=== PATIENT | female | born 1985 | race Caucasian/White ===

== ENCOUNTER 2018-01-03 08:20 | Emergency (ER) | payer OTHER ==
--- NOTE | 2018-01-03 08:38 | EDM.PDOC ---
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 Patient denies any UTI symptoms. No diarrhea. Patient feels very nauseated and has vomiting once. No previous abdominal surgeries. No fevers or chills. Patient states she usually has normal BM's. No blood or mucous in stool. No issues with constipation in the past. Onset: Today, Sudden Onset Date: 01/03/18 Onset Time: 07:45 Duration: Constant Location: Reports: Abdomen (RLQ) Quality: Reports: Sharp, Stabbing, Throbbing Severity: Severe Improves with: Reports: Rest Worsens with: Reports: Eating, Movement Context: Denies: Activity, Sick Contact, Trauma Associated Symptoms: Reports: Nausea/Vomiting Treatments OIL DISPENSER: Reports: Other (see below) (None) Right Lower Abdominal Pain Score (Numeric/FACES): 10 - Related Data Allergies Allergy/AdvReac Type Severity Reaction Status Date / Time silicone Allergy Rash Verified 01/03/18 08:36 Home Meds: Home Meds Tamsulosin HCl [Flomax] 1 cap PO DAILY 6 Days #6 cap.er.24h 01/03/18 [Rx] Tamsulosin HCl [Flomax] 1 cap PO ONETIME 1 Days #1 cap.er.24h 01/03/18 [Rx] Past Medical History Psychiatric History: Reports: Anxiety - Past Surgical History HEENT Surgical History: Reports: Tonsillectomy ED ROS GENERAL - Review of Systems Review Of Systems: See Below Constitutional: Denies: Fever, Chills, Weakness Respiratory: Denies: Shortness of Breath, Cough Cardiovascular: Denies: Chest Pain, Palpitations GI/Abdominal: Reports: Abdominal Pain, Nausea, Vomiting. Denies: Bloody Stool, Constipation, Diarrhea Skin: Reports: No Symptoms Neurological: Reports: No Symptoms. Denies: Dizziness, Headache ED EXAM, GI/ABD - Physical Exam Exam: See Below Exam Limited By: No Limitations General Appearance: Alert, No Apparent Distress Respiratory/Chest: No Respiratory Distress, Lungs Clear, Normal Breath Sounds Cardiovascular: Normal Peripheral Pulses, Regular Rate, Rhythm GI/Abdominal Exam: Soft, Guarding, Rebound, Tender, Abnormal Bowel Sounds ( Hypoactive). No: Distended Neurological: Alert, Oriented Skin Exam: Warm, Dry, Intact, Normal Color Course - Vital Signs Last Recorded V/S: Last Vital Signs Temp 36.8 C 01/03/18 08:25 Pulse 78 01/03/18 08:25 Resp 18 01/03/18 08:25 BP 123/77 01/03/18 08:25 Pulse Ox 97 01/03/18 08:25 - Orders/Labs/Meds Orders: Active Orders 24 hr Category Date Time Status Abdomen Pelvis w wo Cont [CT] Stat Exams 01/03/18 09:36 Taken HCG QUALITATIVE,URINE [URCHEM] Stat Lab 01/03/18 09:38 Ordered Sodium Chloride 0.9% [Saline Flush] Med 01/03/18 08:40 Active 10 ml FLUSH ASDIRECTED PRN Peripheral IV Insertion Adult [OM.PC] Routine Oth 01/03/18 08:40 Ordered Medication Orders Sodium Chloride (Saline Flush) 10 ml FLUSH ASDIRECTED PRN PRN Reason: Keep Vein Open Labs: Laboratory Tests 01/03/18 01/03/18 01/03/18 Range/Units 08:53 08:53 09:13 WBC 12.6 H (4.0-10.0) x10^3/uL RBC 4.55 (4.00-5.50) x10^6/uL Hgb 13.6 D (12.0-16.0) g/dL Hct 40.8 (33.0-47.0) % MCV 89.7 (78.0-93.0) fL MCH 29.9 (26.0-32.0) pg MCHC 33.3 (32.0-36.0) g/dL RDW Coeff of [place] 13.6 (10.0-15.0) % Plt Count 366 D (130-400) x10^3/uL Neut % (Auto) 65.1 (50.0-80.0) % Lymph % (Auto) 26.2 (25.0-50.0) % [place] % (Auto) 7.4 (2.0-11.0) % Eos % (Auto) 1.1 (0.0-4.0) % Baso % (Auto) 0.2 (0.2-1.2) % Sodium 139 (136-145) mmol/L Potassium 4.2 (3.5-5.1) mmol/L Chloride 103 (98-107) mmol/L Carbon Dioxide 25 (21-32) mmol/L Anion Gap 15.2 (10-20) mmol/L BUN 13 (7-18) mg/dL Creatinine 0.8 (0.55-1.02) mg/dL Est Cr Clr Drug Dosing 92.53 mL/min Estimated GFR (MDRD) > 60 Glucose 115 H (74-106) mg/dL Calcium 8.7 (8.5-10.1) mg/dL Corrected Calcium 8.78 (8.5-10.1) mg/dL Total Bilirubin 0.4 (0.2-1.0) mg/dL AST 21 (15-37) U/L ALT 33 (14-59) U/L Alkaline Phosphatase 101 (46-116) U/L Total Protein 7.4 (6.4-8.2) g/dL Albumin 3.9 (3.4-5.0) g/dL Globulin 3.5 Albumin/Globulin Ratio 1.11 Amylase 32 (25-115) U/L Lipase 132 (73-393) U/L Urine Color Yellow (YELLOW) Urine Appearance Slightly cloudy H (CLEAR) Urine pH 5.5 (5.0-8.0) Ur Specific [place] >=1.030 Urine Protein 30 H (NEGATIVE) mg/dL Urine Glucose (UA) Negative (NEGATIVE) mg/dL Urine Ketones Negative (NEGATIVE) mg/dL Urine Occult Blood Moderate H (NEGATIVE) Urine Nitrite Negative (NEGATIVE) Urine Bilirubin Small H (NEGATIVE) Urine Urobilinogen 0.2 (0.2) EU/dL Ur Leukocyte Esterase Trace H (NEGATIVE) Urine RBC 10-20 H (NOT SEEN) /HPF Urine WBC 5-10 H (NOT SEEN) /HPF Ur Squamous Epith Cells Moderate H (NEGATIVE) /HPF Amorphous Sediment Few Urine Bacteria Few H (NEGATIVE) /HPF Urine Mucus Few H (NEGATIVE) /LPF Urine HCG, Qual (NEGATIVE) 18 Range/Units 09:38 WBC (4.0-10.0) x10^3/uL RBC (4.00-5.50) x10^6/uL Hgb (12.0-16.0) g/dL Hct (33.0-47.0) % MCV (78.0-93.0) fL MCH (26.0-32.0) pg MCHC (32.0-36.0) g/dL RDW Coeff of [place] (10.0-15.0) % Plt Count (130-400) x10^3/uL Neut % (Auto) (50.0-80.0) % Lymph % (Auto) (25.0-50.0) % [place] % (Auto) (2.0-11.0) % Eos % (Auto) (0.0-4.0) % Baso % (Auto) (0.2-1.2) % Sodium (136-145) mmol/L Potassium (3.5-5.1) mmol/L Chloride (98-107) mmol/L Carbon Dioxide (21-32) mmol/L Anion Gap (10-20) mmol/L BUN (7-18) mg/dL Creatinine (0.55-1.02) mg/dL Est Cr Clr Drug Dosing mL/min Estimated GFR (MDRD) Glucose (74-106) mg/dL Calcium (8.5-10.1) mg/dL Corrected Calcium (8.5-10.1) mg/dL Total Bilirubin (0.2-1.0) mg/dL AST (15-37) U/L ALT (14-59) U/L Alkaline Phosphatase (46-116) U/L Total Protein (6.4-8.2) g/dL Albumin (3.4-5.0) g/dL Globulin Albumin/Globulin Ratio Amylase (25-115) U/L Lipase (73-393) U/L Urine Color (YELLOW) Urine Appearance (CLEAR) Urine pH (5.0-8.0) Ur Specific [place] Urine Protein (NEGATIVE) mg/dL Urine Glucose (UA) (NEGATIVE) mg/dL Urine Ketones (NEGATIVE) mg/dL Urine Occult Blood (NEGATIVE) Urine Nitrite (NEGATIVE) Urine Bilirubin (NEGATIVE) Urine Urobilinogen (0.2) EU/dL Ur Leukocyte Esterase (NEGATIVE) Urine RBC (NOT SEEN) /HPF Urine WBC (NOT SEEN) /HPF Ur Squamous Epith Cells (NEGATIVE) /HPF Amorphous Sediment Urine Bacteria (NEGATIVE) /HPF Urine Mucus (NEGATIVE) /LPF Urine HCG, Qual Negative (NEGATIVE) Meds: Medications Generic Name Dose Route Start Last Admin Trade Name Freq PRN Reason Stop Dose Admin Sodium Chloride 10 ml 01/03/18 08:40 Saline Flush FLUSH ASDIRECTED PRN Keep Vein Open Discontinued Medications Generic Name Dose Route Start Last Admin Trade Name Freq PRN Reason Stop Dose Admin Hydromorphone HCl 1 mg 01/03/18 10:34 01/03/18 10:39 Dilaudid IVPUSH 01/03/18 10:35 1 mg ONETIME ONE Administration Sodium Chloride 1,000 mls @ 999 mls/hr 01/03/18 08:40 01/03/18 08:54 Normal Saline IV 01/03/18 09:40 999 mls/hr ONETIME ONE Administration Iopamidol 100 ml 01/03/18 09:37 01/03/18 10:08 Isovue-300 (61%) IVPUSH 01/03/18 09:38 100 ml ONETIME ONE Administration Ketorolac Tromethamine 30 mg 01/03/18 08:41 01/03/18 09:00 Toradol IVPUSH 01/03/18 08:42 30 mg ONETIME ONE Administration Ondansetron HCl 4 mg 01/03/18 08:41 01/03/18 08:57 Zofran IVPUSH 01/03/18 08:42 4 mg ONETIME ONE Administration Ondansetron HCl 4 mg 01/03/18 10:05 01/03/18 10:14 Zofran IVPUSH 01/03/18 10:06 4 mg ONETIME ONE Administration - Radiology Interpretation Free Text/Narrative:: CT Abd/Pelvis: 4-5mm distal right ureteral calculus resulting in right sided urinary tract obstruction with hydronephrosis and delayed nephrogram. CT Results Date: 01/03/18 CT Results Time: 11:37 Departure - Departure Time of Disposition: 12:00 Disposition: Home, Self-Care 01 Condition: Good Clinical Impression: Kidney stone Hydronephrosis Qualifiers: Hydronephrosis type: with renal calculous obstruction Qualified Code(s): N13.2 - Hydronephrosis with renal and ureteral calculous obstruction Hematuria Qualifiers: Hematuria type: unspecified type Qualified Code(s): R31.9 - Hematuria, unspecified - Discharge Information Instructions: Hydronephrosis, Kidney Stones, Tamsulosin capsules Referrals: Nida Novoa DO [Physician] - Forms: ED Department Discharge Additional Instructions: 1. Stay well hydrated and rest 2. Take pain medication sparingly, as it will make you drowsy, so be careful 3. If pain gets worse, please go to the ER at [facility] and see the Urologist per his recommendation 4. May use Tylenol/Advil as well 5. Drink LOTS of water to flush stone out 6. Call us with any questions/concerns ED Communication - ED Communication Date/Time Date: 01/03/18 Time Called: 11:52 - Discussed Case With (1) Discussed Case With (1): Outpatient Provider (Dr. Weber, Urology [facility]) - Problem List Review Problem List Initiated/Reviewed/Updated: Yes - My Orders Last 24 Hours: My Active Orders 01/03/18 08:40 Sodium Chloride 0.9% [Saline Flush] 10 ml FLUSH ASDIRECTED PRN Peripheral IV Insertion Adult [OM.PC] Routine 01/03/18 09:36 Abdomen Pelvis w wo Cont [CT] Stat 01/03/18 09:38 HCG QUALITATIVE,URINE [URCHEM] Stat - Assessment/Plan Last 24 Hours: My Active Orders 01/03/18 08:40 Sodium Chloride 0.9% [Saline Flush] 10 ml FLUSH ASDIRECTED PRN Peripheral IV Insertion Adult [OM.PC] Routine 01/03/18 09:36 Abdomen Pelvis w wo Cont [CT] Stat 01/03/18 09:38 HCG QUALITATIVE,URINE [URCHEM] Stat Assessment:: Right ureteral kidney stone with obstruction Mild Hydronephrosis Hematuria Plan: Case discussed with Dr. Weber, urology [facility]. [place]. Will start Flomax and pain medication. If symptoms get worse, patient is to go to the ER in [facility]. Patient verbalized understanding of POC.
[2018-01-03] MEDS ORDERED: Sodium Chloride 0.9% 10 ML Syringe FLUSH PRN (08:40)
[2018-01-03] MEDS ORDERED: Sodium Chloride 0.9% 1,000 ML IV ONE (08:40)
[2018-01-03] MEDS ORDERED: Ondansetron 4 MG/2 ML SDV IVPUSH ONE ×2 (08:41→10:05)
[2018-01-03] MEDS ORDERED: Ketorolac 30 MG/ML SDV IVPUSH ONE (08:41)
[2018-01-03 08:45] VITALS: BP 123/77
[2018-01-03 09:16] LABS: CHLORIDE,CL 103 mmol/L (98-107); SODIUM,NA 139 mmol/L (136-145)
[2018-01-03] MEDS ORDERED: Iopamidol 612 MG/ML 100 ML Bottle IVPUSH ONE (09:37)
[2018-01-03] MEDS ORDERED: HYDROmorphone 1 MG/ML Syringe IVPUSH ONE (10:34)
[2018-01-03] MEDS ORDERED: Take Home: Acetaminophen/HYDROcodone 325-5 MG, 5 Tab Pack PO ONE (12:03)
[2018-01-03] MEDS ORDERED: Tamsulosin 0.4 MG Cap.ER PO ONE (12:10)
== END 2018-01-03 12:25 | disposition home or self-care (01) ==
LOC: VM.ED 08:20 → MERGE 08:20 → VM.ED 12:25
DX: N13.2 Hydronephrosis with renal and ureteral calculous obstruction (principal); Z88.8 Allergy status to other drugs, medicaments and biological substances
CPT/HCPCS: 36415; 74178; 80053; 81001; 81025; 82150; 83690; 85025; 96361; 96374; 96375; 96376; 99284; A9270; J1170; J1885; J2405; J7030; Q9967

== ENCOUNTER 2020-04-06 07:01 | Emergency (ER) | payer MEDICAID ==
[2020-04-06 07:14] VITALS: BP 123/72; PULSE 84
[2020-04-06] MEDS ORDERED: cefTRIAXone 1 GM, Lidocaine 1% 2.1 ML IM ONE ×2 (07:16)
--- NOTE | 2020-04-06 07:18 | EDM.PDOC ---
ED HPI GENERAL MEDICAL PROBLEM - General Chief Complaint: Skin Complaint Stated Complaint: INFECTION IN R MIDDLE FINGER Time Seen by Provider: 04/06/20 07:10 Source of Information: Reports: Patient History Limitations: Reports: No Limitations - History of Present Illness INITIAL COMMENTS - FREE TEXT/NARRATIVE: Patient comes into the emergency department with complaints of infected finger on the right hand. Patient states that she noticed earlier in the week after she peeled a hangnail off her second finger that it started swelling and began to become red. When she woke up this morning she noticed that the swelling was down to the first joint as well as a red line going down the posterior aspect of her hand to her wrist. Patient states that she did become concerned and wanted it evaluated and started on medication right away. Patient states that the swelling has increased in the last 24 hours in the finger as well as the warmth and the pressure of the hand. Patient states she does believe that it did start from after pulling the hangnail. She denies any other injury or concern with the finger. Patient states that she has intact CMS and range of motion.Patient denies any nausea, vomiting, fever, body aches, chills, chest pain, short notice of breath, GI upset, or peripheral edema. Patient states that it does feel better when she is resting her hand or elevating it. She states the discomfort is noticed more when she is trying to move it or complete any activities. 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 Onset: Gradual Duration: Getting Worse Location: Reports: Upper Extremity, Right Quality: Reports: Throbbing Severity: Moderate Improves with: Reports: Immobilization Worsens with: Reports: Movement Associated Symptoms: Reports: No Other Symptoms Right Finger-Middle Pain Score (Numeric/FACES): 7 - Related Data Allergies Allergy/AdvReac Type Severity Reaction Status Date / Time silicone Allergy Rash Verified 04/06/20 07:17 Home Meds: Home Meds Tamsulosin HCl [Flomax] 1 cap PO DAILY 6 Days #6 cap.er.24h 01/03/18 [Rx] Tamsulosin HCl [Flomax] 1 cap PO ONETIME 1 Days #1 cap.er.24h 01/03/18 [Rx] Nitrofurantoin Monohyd/M-Cryst [Macrobid 100 mg Capsule] 100 mg PO BID 5 Days #10 capsule 01/08/18 [Rx] Sulfamethoxazole/Trimethoprim [Bactrim Ds Tablet] 1 each PO BID 10 Days #20 tablet 04/06/20 [Rx] Past Medical History - Past Health History Medical/Surgical History: Denies Medical/Surgical History Genitourinary History: Reports: Renal Calculus Psychiatric History: Reports: Anxiety - Past Surgical History HEENT Surgical History: Reports: Tonsillectomy ED ROS GENERAL - Review of Systems Review Of Systems: Comprehensive ROS is negative, except as noted in HPI. Constitutional: Denies: Fever, Chills, Malaise, Weakness, Fatigue, Night Sweats, Diaphoresis, Decreased Appetite HEENT: Reports: No Symptoms Respiratory: Reports: No Symptoms Cardiovascular: Reports: No Symptoms Endocrine: Reports: No Symptoms GI/Abdominal: Reports: No Symptoms : Reports: No Symptoms Musculoskeletal: Reports: No Symptoms Neurological: Reports: No Symptoms Psychiatric: Reports: No Symptoms Hematologic/Lymphatic: Reports: No Symptoms Immunologic: Reports: No Symptoms ED EXAM, SKIN/RASH Exam: See Below Exam Limited By: No Limitations General Appearance: Alert, WD/WN, No Apparent Distress Throat/Mouth: Normal Inspection, Normal Lips, Normal Teeth, Normal Gums, Normal Oropharynx, Normal Voice, No Airway Compromise Head: Atraumatic, Normocephalic Neck: Normal Inspection, Supple, Non-Tender, Full Range of Motion Respiratory/Chest: No Respiratory Distress, Lungs Clear, Normal Breath Sounds, No Accessory Muscle Use, Chest Non-Tender Cardiovascular: Normal Peripheral Pulses, Regular Rate, Rhythm, No Edema, No Gallop, No JVD, No Murmur, No Rub GI/Abdominal: Normal Bowel Sounds, Soft, Non-Tender, No Organomegaly, No Distention, No Abnormal Bruit, No Mass Extremities: Normal Inspection, Normal Range of Motion, Non-Tender, No Pedal Edema, Normal Capillary Refill Neurological: Alert, Oriented, CN II-XII Intact, Normal Cognition, Normal Gait, Normal Reflexes, No Motor/Sensory Deficits Psychiatric: Normal Affect, Normal Mood Location, Skin: Upper Extremity, Right (2nd digit- distal phalange around nail bed. CMS and ROM intact. red streak down second digit to start of wrist ) Characteristics: Erythematous Associated features: Warmth, Tenderness, Inflammation Lymphatic: No Adenopathy Course - Vital Signs Last Recorded V/S: Last Vital Signs Temp 36.9 C 04/06/20 07:05 Pulse 84 04/06/20 07:05 Resp 16 04/06/20 07:05 BP 123/72 04/06/20 07:05 Pulse Ox 97 04/06/20 07:05 - Orders/Labs/Meds Meds: Medications Discontinued Medications Generic Name Dose Route Start Last Admin Trade Name Stanislaw PRN Reason Stop Dose Admin Ceftriaxone Sodium 1 gm/ 0 gm 04/06/20 07:16 Lidocaine HCl 2.1 ml IM 04/06/20 07:17 ONETIME ONE Departure - Departure Time of Disposition: 07:45 Disposition: Home, Self-Care 01 Condition: Good Clinical Impression: Cellulitis Qualifiers: Site of cellulitis: extremity Site of cellulitis of extremity: finger Laterality: right Qualified Code(s): L03.011 - Cellulitis of right finger - Discharge Information *PRESCRIPTION DRUG MONITORING PROGRAM REVIEWED*: Not Applicable *COPY OF PRESCRIPTION DRUG MONITORING REPORT IN PATIENT [place]: Not Applicable Prescriptions: Sulfamethoxazole/Trimethoprim [Bactrim Ds Tablet] 1 each PO BID 10 Days #20 tablet Instructions: Cellulitis, Adult, Ceftriaxone injection, Sulfamethoxazole; Trimethoprim, [id number] tablets, Probiotics Forms: ED Department Discharge, ED Return to Work/School Form Additional Instructions: 1. Rest 2. Keep the area clean and dry 3. Can use tylenol and ibuprofen as needed for pain and discomfort 4. Diet as tolerated 5. Activity as tolerated 6. Elevated the hand above the level of the heart to decrease swelling and discomfort if applicable 7. Can use ice 3-4 times a day at 20-minute intervals to help with any swelling and discomfort 8. Follow-up with your primary care provider symptoms continue or to progress 9. Discharge information has been provided regarding your injury and wound care has been provided 10. Avoid an public pools or hot tubes until wound is healed. 11. Take all antibiotics as prescribed even if feeling better 12. Take a probiotic while on antibiotics to help promote healthy GI motility Sepsis Event Note (ED) - Evaluation Sepsis Screening Result: No Definite Risk - Focused Exam Vital Signs: Vital Signs Temp Pulse Resp BP Pulse Ox 04/06/20 07:05 36.9 C 84 16 123/72 97 - Assessment/Plan Assessment:: 1. right hand finger infection 2. cellulitis Plan: 1. Rocephin 1gm IM completed in ER 2. Script of Bactrim DS sent with the patient 3. Patient and nursing staff was updated regarding the plan of care 4. Education provided the patient regarding activity, antibiotic, probiotic, diet, rest, [id number] medication modalities, and follow-up care was provided 5. Patient and family are agreeable to the above plan of care 6. All questions and concerns were addressed with the patient and family prior to discharge
== END 2020-04-06 07:50 | disposition home or self-care (01) ==
LOC: VM.ED 07:01
DX: L03.011 Cellulitis of right finger (principal); Z88.8 Allergy status to other drugs, medicaments and biological substances
CPT/HCPCS: 96372; 99282; J0696; J2001; 99283